=== PATIENT | female | born 1945 | race Caucasian/White ===

== ENCOUNTER 2016-06-16 11:56 | Outpatient (CLI) | payer MEDICARE ==
[2015-06-24 11:54] VITALS: BP 120/66
== END 2016-06-16 11:57 ==
LOC: CARD 11:56
PROVIDERS: ATTEND Internal Medicine Cardiovascular Disease
DX: I25.119 Atherosclerotic heart disease of native coronary artery with unspecified angina pectoris (principal); I38 Endocarditis, valve unspecified; E78.5 Hyperlipidemia, unspecified; I10 Essential (primary) hypertension
CPT/HCPCS: 93306; G0463

== ENCOUNTER 2016-07-08 12:18 | Outpatient (CLI) | payer MEDICARE ==
[2015-06-24 11:54] VITALS: BP 120/66
[2016-07-08 12:51] LABS: eGFR (African) > 60; eGFR (Non-African) > 60
== END 2016-07-08 12:20 ==
LOC: LAB 12:18
PROVIDERS: ATTEND Nurse Practitioner Family
DX: R07.9 Chest pain, unspecified (principal); R06.02 Shortness of breath
CPT/HCPCS: 36415; 82565

== ENCOUNTER 2016-07-14 11:46 | Outpatient (CLI) | payer MEDICARE ==
[2015-06-24 11:54] VITALS: BP 120/66
== END 2016-07-14 11:47 ==
LOC: CARD 11:46
PROVIDERS: ATTEND Internal Medicine Cardiovascular Disease
DX: I25.10 Atherosclerotic heart disease of native coronary artery without angina pectoris (principal); E78.5 Hyperlipidemia, unspecified; I10 Essential (primary) hypertension
CPT/HCPCS: G0463

== ENCOUNTER 2016-07-22 11:34 | Outpatient (CLI) | payer MEDICARE ==
[2015-06-24 11:54] VITALS: BP 120/66
--- NOTE | 2016-07-22 20:48 | Diagnostic Imaging Report ---
ROBYB MARX (HEAVY EQUIPMENT TECHNICIAN) - OP [facility] [id number] [address] [id number] Report Submission Date: Jul 22, 2016 12:31:13 PM CDT Patient Study Name: GARY MOTA Date: Jul 22, 2016 12:07:50 PM CDT Modality Type: CT\SR Gender: F Description: CT CHEST W/ CONTRAST : 43 Institution: [facility] Physician: ROBBY MARX (ADRIEL) - OP CT of the chest with contrast Clinical history: Chest pain and shortness of breath. Contrast administered: 89 ml of Omnipaque. Technique: CT of the chest is performed in contiguous axial slices during intravenous infusion of contrast. Sagittal and coronal reconstructions are performed by the technologist. Findings: The lungs are free of coalescent infiltrate. Central airways are patent. Vascular calcification is present in the thoracoabdominal aorta with extension into the origins of the great vessels and coronary arteries. There is calcification in the left main coronary artery. There is no mediastinal or hilar mass or significant adenopathy. Hepatic steatosis is evident on images of the upper abdomen. Impression: 1. Vascular calcification including calcification in the left main coronary artery. 2. Hepatic steatosis. Electronically signed on Jul 22, 2016 12:31:13 PM CDT by: Steve MCCARTHY
== END 2016-07-22 11:35 ==
LOC: RAD 11:34
PROVIDERS: ATTEND Nurse Practitioner Family
DX: R07.9 Chest pain, unspecified (principal); R06.02 Shortness of breath
CPT/HCPCS: 71260; Q9966

== ENCOUNTER 2016-07-28 08:21 | Outpatient (CLI) | payer MEDICARE ==
[2015-06-24 11:54] VITALS: BP 120/66
== END 2016-07-28 09:02 ==
LOC: LAB 08:21
PROVIDERS: ATTEND Internal Medicine Cardiovascular Disease
DX: I25.10 Atherosclerotic heart disease of native coronary artery without angina pectoris (principal)
CPT/HCPCS: 36415; 80061; 83880

== ENCOUNTER 2017-04-01 10:03 | Outpatient (CLI) | payer MEDICARE ==
[2015-06-24 11:54] VITALS: BP 120/66
== END 2017-04-01 10:04 ==
LOC: OUT 10:03
PROVIDERS: ATTEND Colon & Rectal Surgery
DX: K60.2 Anal fissure, unspecified (principal); K59.9 Functional intestinal disorder, unspecified; I10 Essential (primary) hypertension; E78.5 Hyperlipidemia, unspecified; I25.10 Atherosclerotic heart disease of native coronary artery without angina pectoris
CPT/HCPCS: G0463